=== PATIENT | female | born 1955 | race Two or more races ===

== ENCOUNTER 2017-04-28 07:02 | Day surgery (SDC) | payer BC ==
[~2017-04-28] VITALS: Ht 162.6 cm; Wt 57.2 kg
[2017-04-28] VITALS (8 sets, daily range): BP systolic 117–139; BP diastolic 83–91
[~2017-04-28 07:02] MED LIST: LEVOXYL88 MCG PO; NEXIUM40 MG PO; TRAZODONE HCL50 MG PO; ZANTAC150 MG ORAL
--- NOTE | 2017-04-28 08:54 | Pre-Procedure Note/Attestation ---
Pre-Procedure Note/Attestation Complete Prior to Procedure Planned Procedure: not applicable Procedure Narrative: esophagogastroduodenoscopy and colonoscopy Indications for Procedure Pre-Operative Diagnosis: screening colon, GERD Attestation I attest that I discussed the nature of the procedure; its benefits; risks and complications; and alternatives (and the risks and benefits of such alternatives ), prior to the procedure, with the patient (or the patient's legal liability claims representative). I attest that, if there was a reasonable possibility of needing a blood transfusion, the patient (or the patient's legal liability claims representative) was given the [facility] standardized written summary, pursuant to the [employer] [place] [employer] Blood Safety Act ([place] Health and Safety Code # 1645, as amended). I attest that I re-evaluated the patient just prior to the surgery and that there has been no change in the patient's H&P, except as documented below: CHRIS MADERA Apr 28, 2017 08:54
--- NOTE | 2017-04-28 08:55 | Short Stay Surgery H&P ---
History of Present Illness History of Present Illness Chief Complaint screening colon, GERD HPI Inocente Joseph is a 61 year old female who was admitted on for Colon Screening Patient History Allergies: Coded Allergies: No Known Allergies (Verified Allergy, Mild, 08/21/07) PAST MEDICAL HISTORY: (1) High blood cholesterol (2) Hypothyroid (3) Chronic GERD Past Surgeries: Social History: Medication History Scheduled Levothyroxine Sodium* (Levoxyl*), 88 MCG PO DAILY, (Reported) Ranitidine Hcl* (Zantac*), 150 MG ORAL 3XW, (Reported) Trazodone Hcl* (Desyrel*), 50 MG PO QHS, (Reported) Discontinued Medications Esomeprazole Magnesium (Nexium), 40 MG PO DAILY, (Reported) Discontinued Reason: Pt stopped taking med Review of Systems Cardiovascular: Reports: no symptoms Respiratory: Reports: no symptoms Skeletal: Reports: no symptoms Gastrointestinal: Reports: gastro esophageal reflux disease Genitourinary: Reports: no symptoms Neurologic: Reports: no symptoms Endocrine: Reports: no symptoms Hematologic: Reports: no symptoms Physical Exam Vital Signs Last Vital Signs Date Time Temp Pulse Resp B/P (MAP) Pulse Ox O2 Delivery O2 Flow Rate FiO2 04/28/17 07:37 97.0 67 18 129/88 100 Room Air Skin: normal HENT: normal Heart: normal Lungs: normal Abdomen: normal Extremities: normal Plan Plan of Care esophagogastroduodenoscopy and colonoscopy Final Diagnosis: Attestation Are the patient's medical conditions optimized for surgery? Attestation Response: yes CHRIS MADERA Apr 28, 2017 08:55
[2017-04-28] MEDS ORDERED: Morphine Sulfate 10mg/ml Inj ONE (09:00)
[2017-04-28] MEDS ORDERED: LR 1000ml ONE (09:00)
[2017-04-28] MEDS ORDERED: Propofol 10mg/ml 20ml IV ONE (09:00)
[2017-04-28] MEDS ORDERED: fentaNYL 100 mcg/2 mL IV ONE (09:00)
--- NOTE | 2017-04-28 09:25 | Anethesia Preoperative Eval ---
Anesthesia Pre-op PMH/ROS General Date of Evaluation: Apr 28, 2017 Time of Evaluation: 09:02 Anesthesiologist: MG ASA Score: ASA 1 Mallampati Score Class I : Soft palate, uvula, fauces, pillars visible Class II: Soft palate, uvula, fauces visible Class III: Soft palate, base of uvula visible Class IV: Only hard plate visible Mallampati Classification: Class I Anesthesia History: none Family History: no anesthesia problems Allergies: Coded Allergies: No Known Allergies (Verified Allergy, Mild, 08/21/07) Medications: see eMAR Anesthesia Pre-op Phys. Exam Physician Exam Last Vital Signs Date Time Temp Pulse Resp B/P (MAP) Pulse Ox O2 Delivery O2 Flow Rate FiO2 04/28/17 07:37 97.0 67 18 129/88 100 Room Air Constitutional: NAD Neurologic: CN 2-12 intact Cardiovascular: RRR Respiratory: CTA Airway Exam Mallampati Score: Class II MO: full ROM: full Teeth: intact Anesthesia Pre-op A/P Risk Assessment & Plan Plan: MAC Status Change Before Surgery: No Pre-Antibiotics Given Within 1 Hr of Incision: Andreas Gutiérrez M.D. Apr 28, 2017 09:25
--- NOTE | 2017-04-28 09:28 | Immediate Post-Op Evaluation ---
Immediate Post-Op Evalulation Immediate Post-Op Evalulation Procedure: EGD/Colonocopy Date of Evaluation: Apr 28, 2017 Time of Evaluation: 10:00 IV Fluids: 300 Blood Products: 0 Estimated Blood Loss: 0 Urinary Output: 0 Blood Pressure Systolic: 130 Blood Pressure Diastolic: 68 Pulse Rate: 78 Respiratory Rate: 14 O2 Sat by Pulse Oximetry: 99 Temperature (Fahrenheit): 98 Pain Score (1-10): 0 Nausea: No Vomiting: No Patient Status: awake, reacts, patent Hydration Status: adequate Given Within 1 Hr of Incision: Andreas Gutiérrez M.D. Apr 28, 2017 09:28
[2017-04-28] MEDS ORDERED: Metoclopramide 10mg/2ml Inj IVP PRN (09:30)
[2017-04-28] MEDS ORDERED: fentaNYL 100 mcg/2 mL IV PRN (09:30)
--- NOTE | 2017-04-28 09:30 | 48 Hour Post Anesthesia Eval ---
Post Anesthesia Evaluation Procedure: EGD/Colonocopy Date of Evaluation: Apr 30, 2017 Time of Evaluation: 08:00 Blood Pressure Systolic: 134 0: 78 Pulse Rate: 74 Respiratory Rate: 18 Temperature (Fahrenheit): 98 O2 Sat by Pulse Oximetry: 99 Nausea: No Vomiting: No Pain Intensity: 0 Hydration Status: adequate Mental Status/LOC: patient returned to baseline Follow-up care needed: patient intructions given Andreas Smyth M.D. Apr 28, 2017 09:30
--- NOTE | 2017-04-28 09:42 | Endoscopy Procedure Note ---
Endoscopy Procedure Note Indication for Procedure: screening colon, GERD Procedures Performed: EGD, colonoscopy Operative Findings/Diagnosis: one polyp, gastritis Specimen: yes Pt Tolerated Procedure Well: Yes Estimated Blood Loss: none Anesthesiologist: see chart Anesthesia: MAC Implant(s) used?: No 50 yrs or older w/o bx or poly: No 10yrs. F/U not recommended: Yes If not recommended, why?: Above average risk 10 yrs. F/U needed: Yes 18 years or older w/prev. colo: No CHRIS MADERA Apr 28, 2017 09:42
--- NOTE | 2017-04-29 04:00 | Procedure Note ---
DATE OF PROCEDURE: 04/28/2017 SURGEON: Presley Alvarez M.D. PROCEDURE: Upper endoscopy with biopsy and colonoscopy with biopsy. ANESTHESIOLOGIST: Andreas Smyth M.D. INSTRUMENT: Olympus adult flexible upper endoscope and colonoscope. INDICATION: Screening colonoscopy evaluation and chronic GERD. REASON FOR PROCEDURE: The procedure, risks, benefits, and possible consequences, including hemorrhage, aspiration, perforation and infection, and alternative treatments, were explained to the patient/legal guardian by Dr. Presley Alvarez and the patient/legal guardian understood and accepted these risks. PROCEDURE: After informed consent was obtained and the patient was adequately sedated, first Olympus upper endoscope was advanced from mouth into the second portion of duodenum and retroflexion was performed in the stomach. The patient has minimum distal esophagitis. No obvious esophageal mass was seen. No obvious ulceration. In the stomach, just below the GE junction, in the fundus of the stomach, there was about 9 mm submucosal lesion at about 5 o'clock position. We did multiple biopsies from this lesion. The patient's stomach has evidence of diffuse gastritis. Random biopsy from body and antrum was obtained to rule out H. pylori infection. Duodenal mucosa was within normal limit. At this time, the upper endoscope was retrieved and the patient was turned over for colonoscopy. First, a rectal exam was performed, which was suspicious for rectal prolapse. Then, the scope was advanced from rectum into the cecum and then subsequently to terminal ileum. Quality of prep was good. The patient had one lesion in the sigmoid colon, suspicious for either polyp or an inverted tick. A small biopsy from this lesion was obtained. The patient had evidence of scattered diverticulosis in the left colon. Retroflexion of rectum showed evidence of internal hemorrhoids. SUMMARY FINDINGS: 1. Minimum esophagitis. 2. Gastric submucosal lesion, see above for details. 3. Gastritis, status post biopsy. 4. Questionable rectal prolapse. 5. Diverticulosis. 6. One colonic polyp removed, see above for details. RECOMMENDATIONS: Follow up biopsies and treat accordingly. I want to thank, Dr. Rawls, for this kind referral. Presley Alvarez M.D. DR: ROSAMARIA JOB#: [id number] CC: Anmol Rawls M.D.; Fax#: [phone] [facility]
--- NOTE | 2017-05-02 15:49 | Cardiology Report ---
APPROVED REPORT EKG Measurement Heart [id number] Normal sinus rhythm Cannot rule out Anterior infarct, age undetermined Abnormal ECG
== END 2017-04-28 10:50 | disposition home or self-care (01) ==
LOC: GAS 07:02
DX: Z12.11 Encounter for screening for malignant neoplasm of colon (principal); D12.5 Benign neoplasm of sigmoid colon; K64.8 Other hemorrhoids; K57.30 Diverticulosis of large intestine without perforation or abscess without bleeding; K21.9 Gastro-esophageal reflux disease without esophagitis; K20.9 Esophagitis, unspecified; K29.50 Unspecified chronic gastritis without bleeding; K31.9 Disease of stomach and duodenum, unspecified; E78.00 Pure hypercholesterolemia, unspecified; E03.9 Hypothyroidism, unspecified
CPT/HCPCS: 43239; 45380; 93005; J2270; J2704; J3010; J7120; 94003; 94150